=== PATIENT | female | born 1960 | race Caucasian/White ===

== ENCOUNTER 2025-01-29 05:50 | Day surgery (SDC) | payer OTHER, SELFPAY ==
[2025-01-15 09:20] LABS: Hematocrit 46.7 % (37.0-47.0); Hemoglobin 15.6 g/dL (12.0-16.0); Mean Corp Hgb Conc. 33.4 g/dL (33.0-37.0); Mean Corpuscular Volume 97.7 fL (81.0-99.0); Platelet Count 346 10^3/uL (130-400); Red Cell Dist. Width 12.4 % (11.5-14.5)
[2025-01-15 10:22] LABS: Blood Urea Nitrogen 13 mg/dl (7-17); Calcium 9.6 mg/dl (8.4-10.2); Carbon Dioxide 27 mmol/L (22-30); Chloride 107 mmol/L (98-107); Glucose 81 mg/dl (70-99); Potassium 4.7 mmol/L (3.5-5.1); Sodium 141 mmol/L (135-145); eGFR > 60.00
[2025-01-15 13:51] VITALS: BMI 32.3
--- NOTE | 2025-01-16 07:32 | PTCARENOTE ---
Patients 01/15 ECG abnormal- reviewed by Dr. Camarillo- no additional interventions required
[2025-01-29] VITALS (11 sets, daily range): BP systolic 126–163; BP diastolic 66–89; BMI 32.3
[2025-01-29] MEDS: HEPARIN 5000 UNITS SC (06:35)
[2025-01-29] MEDS: NORMOSOL-R/PLASMALYTE-A 1000 IV (06:36)
[2025-01-29] MEDS: SUBLIMAZE 25 MCG IV (10:19)
== END 2025-01-29 13:55 | disposition home or self-care (01) ==
LOC: SDS 05:50
PROVIDERS: ATTENDING PHYSICIAN Obstetrics & Gynecology; FAMILY PHYSICIAN Internal Medicine
DX: N81.2 Incomplete uterovaginal prolapse (principal); N39.3 Stress incontinence (female) (male); N95.8 Other specified menopausal and perimenopausal disorders; N84.0 Polyp of corpus uteri; D25.9 Leiomyoma of uterus, unspecified; N80.03 Adenomyosis of the uterus; N83.292 Other ovarian cyst, left side; N83.291 Other ovarian cyst, right side; N83.8 Other noninflammatory disorders of ovary, fallopian tube and broad ligament
CPT/HCPCS: 57425; 58542; 57260; 80048; 85027; 86850; 86900; 86901; 88305; 93005; C1763